=== PATIENT | female | born 1960 | race Caucasian/White ===

== ENCOUNTER → 2021-06-24 11:26 | Outpatient (CLI) | payer BC, SELFPAY ==
--- NOTE | 2021-06-24 11:35 | DI.RAD.S_ITS ---
PROCEDURE: XR KNEE RT 3V INDICATIONS: RT KNEE TRAUMA TECHNIQUE: 3 views of the knee were acquired. COMPARISON: None. FINDINGS: Bones: No fractures or dislocations. No suspicious bony lesions. Mild tricompartmental osteoarthritis. Soft tissues: No joint effusion. No suspicious soft tissue calcifications. IMPRESSION: No fracture. No acute osseous lesion. If symptoms and/or clinical suspicion for pathology persists, further assessment with repeat radiographs (7-10 days) or advanced imaging (e.g. CT, MRI or bone scan) should be considered. Dictated by: Annalee Payne MD, PhD on 06/24/2021 at 14:49 Approved by: Annalee Payne MD, PhD on 06/24/2021 at 14:53
== END ==
PROVIDERS: PCP Internal Medicine; Referring Provider Internal Medicine; Visit Provider Internal Medicine
DX: M25.561 Pain in right knee (principal); S89.91XA Unspecified injury of right lower leg, initial encounter; X58.XXXA Exposure to other specified factors, initial encounter
CPT/HCPCS: 73562

== ENCOUNTER → 2021-07-01 08:29 | Outpatient (CLI) | payer BC, SELFPAY ==
--- NOTE | 2021-07-01 | DI.MRI.S_ITS ---
PROCEDURE: MR KNEE RT WO CON INDICATIONS: Pain in right knee TECHNIQUE: Noncontrast sagittal PD fast spin echo and T2 fast spin echo with fat saturation, sagittal 3-D FLASH with fat saturation; coronal T1 spin echo and PD fast spin echo with fat saturation, and axial PD fast spin echo with fat saturation through the knee. COMPARISON: [facility], CR, XR KNEE RT 3V, 06/24/2021, 11:29. FINDINGS: Image quality: Excellent. Menisci: There is nondisplaced tear involving the body of the medial meniscus (series 10, image 19). A ramp lesion is seen in the posterior horn of the medial meniscus. The lateral meniscus demonstrates normal morphology and internal signal. The meniscal root ligaments appear intact. Cruciate ligaments: The anterior cruciate ligament appears mildly irregular with heterogeneous signal, suspicious for partial tear. The posterior cruciate ligament is intact. Medial structures: There is grade 2 sprain of the medial collateral ligament. Partial tear is noted in the semimembranosus tendon insertions. There is contusion of the posterior medial joint capsule. The meniscocapsular junction appear intact. Visualized portions of the pes anserinus tendons appear normal. No abnormal bursal fluid. Lateral structures: The lateral collateral ligament, long and short heads of the biceps femoris tendon appear intact. There is partial tear of the popliteus tendon at the musculotendinous junction. No tendon retraction. Iliotibial band appears normal. Anterior structures: The quadriceps and patellar tendons appear intact. Patellar alignment is normal. No femoral trochlear dysplasia or ventral trochlear prominence. No edema in the infrapatellar fat pad. Superficial infrapatellar tissue edema consistent with soft tissue contusion. Bones and cartilage: There is a nondisplaced fracture involving the medial tibial plateau with associated marrow edema. No central depression of the medial tibial plateau. Mild contusion of the the lateral tibial plateau is also noted. The cartilage of the medial and lateral femorotibial compartments, as well as the patellofemoral compartment, appears normal in thickness. Joint space: There is small knee joint effusion. There is a tiny Borges's cyst. Normal appearing synovial plicae are incidentally noted. IMPRESSION: 1. Nondisplaced fracture of the medial tibial plateau. No central depression of the medial tibial plateau. There is marrow edema in medial and lateral tibial plateau consistent with contusions. 2. Horizontal tear of the body of the medial meniscus. In addition, there is a ramp lesion in the posterior horn of the medial meniscus with associated contusion of the posterior medial joint capsule. No meniscocapsular separation. 3. Suspect partial tear of the ACL which is mildly irregular and heterogeneous in signal intensity. 4. Grade 2 sprain of the medial collateral ligament. 5. Partial tear of the semimembranosus tendon insertions. 6. Partial tear of the popliteus tendon at musculotendinous junction. No tendon retraction. 7. Small knee joint effusion. 8. Anterior inferior superficial soft tissue contusion in the infrapatellar soft tissue. Dictated by: Kimberly Campoverde M.D. on 07/01/2021 at 9:42 Approved by: Kimberly Campoverde M.D. on 07/01/2021 at 10:04
== END ==
PROVIDERS: PCP Internal Medicine; Referring Provider Internal Medicine; Visit Provider Internal Medicine
DX: M25.561 Pain in right knee (principal); S82.144A Nondisplaced bicondylar fracture of right tibia, initial encounter for closed fracture; S83.241A Other tear of medial meniscus, current injury, right knee, initial encounter; S83.411A Sprain of medial collateral ligament of right knee, initial encounter; S76.811A Strain of other specified muscles, fascia and tendons at thigh level, right thigh, initial encounter; M25.461 Effusion, right knee; X58.XXXA Exposure to other specified factors, initial encounter
CPT/HCPCS: 73721

== ENCOUNTER → 2022-05-04 07:30 | Outpatient (CLI) | payer OTHER, SELFPAY ==
--- NOTE | 2022-05-04 | DI.MG.S_ITS ---
BILATERAL DIGITAL SCREENING MAMMOGRAM 3D/2D WITH CAD: 05/04/2022 CLINICAL: Routine screening. Family history of breast cancer. Comparison is made to exams dated: 02/16/2019 mammogram, 12/23/2016 mammogram, and 06/19/2014 mammogram - out side. The tissue of both breasts is heterogeneously dense. This may lower the sensitivity of mammography. Current study was also evaluated with a Computer Aided Detection (CAD) system. No significant masses, calcifications, or other findings are seen in either breast. There has been no significant interval change. IMPRESSION: NEGATIVE There is no mammographic evidence of malignancy. A 1 year screening mammogram is recommended. Based on the Tyrer Cuzick model (a risk assessment model) the patient's lifetime risk is 14.1% and her 10 year risk is 5.8%. According to the ACR, ACS, and NCCN guidelines, an annual breast MRI exam along with mammogram is recommended if the patient's lifetime risk is 20% or greater. This exam was interpreted at Station ID: [id number]. NOTE: For mammograms, a report in lay terms will be sent to the patient. Approximately 15% of breast malignancies will not be visualized mammographically. In the management of a palpable breast mass, a negative mammogram must not discourage biopsy of a clinically suspicious lesion. Electronically Signed By: Milind Ramires M.D. [facility] [place]/:05/04/2022 08:51:23 letter sent: Normal Exam ACR BI-RADS Category 1: Negative [id number]
== END ==
PROVIDERS: PCP Student in an Organized Health Care Education/Training Program; Referring Provider Student in an Organized Health Care Education/Training Program; Visit Provider Student in an Organized Health Care Education/Training Program
DX: Z12.31 Encounter for screening mammogram for malignant neoplasm of breast (principal); Z80.3 Family history of malignant neoplasm of breast
CPT/HCPCS: 77063; 77067

== ENCOUNTER → 2023-06-07 08:09 | Outpatient (CLI) | payer OTHER, SELFPAY ==
--- NOTE | 2023-06-07 | DI.MG.S_ITS ---
BILATERAL DIGITAL SCREENING MAMMOGRAM 3D/2D WITH CAD: 06/07/2023 CLINICAL: Routine screening. Family history of breast cancer. Comparison is made to exams dated: 05/04/2022 mammogram - [facility], 02/16/2019 mammogram, and 06/19/2014 mammogram - out side. There are scattered areas of fibroglandular density in both breasts (category b / 25%-50% glandular tissue). Current study was also evaluated with a Computer Aided Detection (CAD) system. No significant masses, calcifications, or other findings are seen in either breast. There has been no significant interval change. IMPRESSION: NEGATIVE There is no mammographic evidence of malignancy. A 1 year screening mammogram is recommended. Based on the Tyrer Cuzick model (a risk assessment model) the patient's lifetime risk is 9.3% and her 10 year risk is 3.9%. According to the ACR, ACS, and NCCN guidelines, an annual breast MRI exam along with mammogram is recommended if the patient's lifetime risk is 20% or greater. This exam was interpreted at Station ID: [id number]. NOTE: For mammograms, a report in lay terms will be sent to the patient. Approximately 15% of breast malignancies will not be visualized mammographically. In the management of a palpable breast mass, a negative mammogram must not discourage biopsy of a clinically suspicious lesion. Electronically Signed By: Giana davila/suellen:06/07/2023 15:14:17 letter sent: Normal Exam ACR BI-RADS Category 1: Negative [id number]
== END ==
PROVIDERS: PCP Student in an Organized Health Care Education/Training Program; Referring Provider Student in an Organized Health Care Education/Training Program; Visit Provider Student in an Organized Health Care Education/Training Program
DX: Z12.31 Encounter for screening mammogram for malignant neoplasm of breast (principal); Z80.3 Family history of malignant neoplasm of breast
CPT/HCPCS: 77063; 77067

== ENCOUNTER 2023-12-27 14:55 | Inpatient (IN) | payer OTHER, SELFPAY ==
[2023-12-27] VITALS (23 sets, daily range): BP systolic 102–171; BP diastolic 55–91; PULSE 66–107; RESP 19–38; TEMP 37.2–38.2; O2SAT 95–100; BMI 30.5
[2023-12-27] MEDS: PANTOPRAZOLE 40 MG VIAL 80 MG IV (15:30)
[2023-12-27 15:38] LABS: Add Manual Diff / Slide Review NO; Basophils Absolute Auto 0 /uL (0-100); Basophils Percent Auto 0.2 % (0-2); Eosinophils Absolute Auto 0 /uL (0-450); Hematocrit 46.2 % (36-46); Hemoglobin 15.6 g/dL (12.0-16.0); Lymphocytes Absolute Auto 500 /uL (1100-4500); Lymphocytes Percent Auto 3.7 % (25-40); Mean Corpuscular HGB Conc 33.8 % (30-36); Mean Corpuscular Volume 91.6 fL (80-100); Monocytes Absolute Auto 300 /uL (0-900); Monocytes Percent Auto 1.8 % (3-14); Neutrophils Absolute Auto 13100 /uL (1500-7000); Neutrophils Percent Auto 94.3 % (50-75); Platelet Count 206 X10^3/uL (150-400); Red Blood Cell Count 5.05 X10^6/uL (4.0-5.2); Red Cell Distribution Width 13.2 % (11.6-14.8); White Blood Cell Count 13.9 X10^3/uL (4.5-11.0)
[2023-12-27] MEDS: HYDROMORPHONE 0.5 MG INJ IV ×2 (15:38→18:36)
[2023-12-27 15:49] LABS: PTT Partial Thromboplastin Tim 35 SECONDS (25.1-36.5)
--- NOTE | 2023-12-27 15:51 | ED_ITS ---
HPI - GI Bleed General Chief complaint: GI Bleed Stated complaint: GI Sick Time Seen by Provider: 12/27/23 15:36 Source: patient, family and EMS Mode of arrival: EMS History of Present Illness HPI Narrative: Patient brought here by ambulance from home for complaints of nausea with lower abdominal pain that does not radiate. Sharp pain. This started yesterday. Had 1 episode of dark stool but not bright red blood. Patient is not on any blood thinners. Patient has history of hysterectomy and appendectomy. She states she has had a colonoscopy in the past, no history of diverticulosis or diverticulitis. No urinary complaints. Related Data Home Medications Medication Instructions Recorded Confirmed bupropion HCl 200 mg tablet,12 hr 200 mg PO BID 12/27/23 12/27/23 sustained-release buspirone 15 mg tablet 15 mg PO DAILY PRN Anxiety 12/27/23 12/27/23 fluticasone propionate 50 2 spray intranasal DAILY 12/27/23 12/27/23 mcg/actuation nasal spray,suspension methylphenidate HCl 20 mg tablet 20 mg PO BID PRN attention deficit 12/27/23 12/27/23 hyperactivity disorder sumatriptan succinate 100 mg tablet 100 mg PO Q2H PRN Migraine Headache 12/27/23 12/28/23 topiramate 25 mg tablet 50 mg PO ONCE PM 12/27/23 12/27/23 trazodone 50 mg tablet 50 mg PO ONCE PM PRN Insomnia 12/27/23 12/27/23 venlafaxine 225 mg tablet,extended 225 mg PO DAILY 12/27/23 12/27/23 release 24 hr Previous Rx's Medication Instructions Recorded levofloxacin 750 mg tablet 750 mg PO DAILY #2 tabs 12/30/23 tramadol 50 mg tablet 50 mg PO Q6H PRN pain #15 tabs 12/30/23 Allergies Allergy/AdvReac Type Severity Reaction Status Date / Time hydrocodone Allergy Severe Anaphylaxis Verified 12/27/23 15:33 Review of Systems Review of Systems Narrative: GENERAL: negative chills, fatigue, malaise, fever, sweats. HEENT: negative sinus pain, ear pain, sore throat RESPIRATORY: negative dyspnea, cough CARDIOVASCULAR: negative chest pain, palpitations GASTROINTESTINAL: Positive dark stool and nausea, negative vomiting, positive abdominal pain : negative dysuria, frequency, hematuria MUSCULOSKELETAL: negative muscle or bony pain SKIN: negative rash, skin lesions NEUROLOGIC: negative weakness, numbness ROS Unobtainable: All systems reviewed & are unremarkable except as noted in HPI and below Patient History Medical History (Updated 12/27/23 @ 19:49 by Shawn Alvarenga MD) Factor 5 Leiden mutation, heterozygous Surgical History (Updated 12/27/23 @ 19:49 by Shawn Alvarenga MD) H/O: hysterectomy History of appendectomy Social History household members: spouse Smoking Status: Never smoker Smoking Status: Never smoker alcohol intake frequency: a few times a month Alcohol type: wine Substance Use Type: does not use Exam Narrative Exam Narrative: GENERAL: in no distress, not toxic not dyspneic HEAD: Normocephalic. EYES: Pupils equal round ENT: Mucous membranes moist. NECK: Trachea midline. CARDIOVASCULAR: Regular rate and rhythm RESPIRATORY: Clear to auscultation. Breath sounds equal bilaterally. No wheezes, rales, or rhonchi. GASTROINTESTINAL: Abdomen soft, mild suprapubic tenderness, no peritoneal signs, no guarding no rebound. Bowel sounds are present. No pain out of proportion to exam. No CVA tenderness EXTREMITIES: No gross deformities. BACK: No flank tenderness. NEURO: AOx4. SKIN: Warm and dry PSYCH: Not anxious, is cooperative Initial Vital Signs Initial Vital Signs: Vital Signs Temperature 98.9 F 12/27/23 15:03 Pulse Rate 68 12/27/23 15:03 Respiratory Rate 22 12/27/23 15:03 Blood Pressure 102/55 L 12/27/23 15:03 Pulse Oximetry 100 12/27/23 15:03 Oxygen Delivery Method Room Air 12/27/23 15:03 Course Orders Ordered: Discontinued Medications Acetaminophen (Acetaminophen 325 Mg Tablet) 650 mg PO Q6H PRN PRN Reason: Fever/Mild Pain (1-3) Last Admin: 12/30/23 09:01 Dose: 650 mg Documented By: Admin: 12/30/23 00:21 Dose: 650 mg Documented By: Admin: 12/29/23 14:44 Dose: 650 mg Documented By: Admin: 12/29/23 07:37 Dose: 650 mg Documented By: Admin: 12/29/23 00:54 Dose: 650 mg Documented By: Admin: 12/28/23 16:02 Dose: 650 mg Documented By: BT Bupropion HCl (Bupropion Sr 100 Mg Tab) 200 mg PO BID COUNTS INCLUDE 234 BEDS AT THE [facility] Last Admin: 12/30/23 09:00 Dose: 200 mg Documented By: Admin: 12/29/23 20:01 Dose: 200 mg Documented By: Admin: 12/29/23 08:27 Dose: 200 mg Documented By: Admin: 12/28/23 21:11 Dose: 200 mg Documented By: SR Buspirone HCl (Buspirone 5 Mg Tablet) 15 mg PO DAILY PRN PRN Reason: Anxiety Celecoxib (Celecoxib 100 Mg Capsule) 100 mg PO BID COUNTS INCLUDE 234 BEDS AT THE [facility] Celecoxib (Celecoxib 200 Mg Capsule) 200 mg PO BID COUNTS INCLUDE 234 BEDS AT THE [facility] Last Admin: 12/30/23 09:01 Dose: 200 mg Documented By: Admin: 12/29/23 20:01 Dose: 200 mg Documented By: Admin: 12/29/23 08:27 Dose: 200 mg Documented By: Admin: 12/28/23 21:11 Dose: 200 mg Documented By: SR Celecoxib (Celecoxib 200 Mg Capsule) 200 mg PO BID COUNTS INCLUDE 234 BEDS AT THE [facility] Enoxaparin Sodium (Enoxaparin 40 Mg/0.4 Ml Syringe) 40 mg SUBCUT DAILY COUNTS INCLUDE 234 BEDS AT THE [facility] Last Admin: 12/30/23 09:01 Dose: Not Given Documented By: Admin: 12/29/23 08:28 Dose: 40 mg Documented By: EV Fentanyl (Fentanyl 100 Mcg/2 Ml Inj) 0 mcg IV Q5MIN PRN PRN Reason: Pain, Severe (7-10) Fentanyl (Fentanyl 100 Mcg/2 Ml Inj) 0 mcg IV Q5M PRN PRN Reason: Pain, Moderate (4-6) Fluticasone Propionate (Fluticasone 120 [place]/16 Gm [place].Susp) 2 spray NASAL DAILY COUNTS INCLUDE 234 BEDS AT THE [facility] Last Admin: 12/30/23 09:01 Dose: Not Given Documented By: Admin: 12/29/23 09:26 Dose: Not Given Documented By: BT Hydromorphone HCl (Hydromorphone 0.5 Mg Inj) 0.5 mg IV NOW ONE Stop: 12/27/23 15:35 Last Admin: 12/27/23 15:38 Dose: 0.5 mg Documented By: FREDERIC Hydromorphone HCl (Hydromorphone 0.5 Mg Inj) 0.5 mg IV Q2H PRN PRN Reason: Pain, Severe (7-10) Last Admin: 12/27/23 18:36 Dose: 0.5 mg Documented By: FREDERIC Hydromorphone HCl (Hydromorphone 0.5 Mg Inj) 1 mg IV Q2H PRN PRN Reason: Pain, Severe (7-10) Last Admin: 12/27/23 23:18 Dose: 1 mg Documented By: Admin: 12/27/23 20:30 Dose: 1 mg Documented By: RYAN Hydromorphone HCl (Hydromorphone 1 Mg Inj) 1 mg IV Q2HR PRN PRN Reason: Pain, Severe (7-10) Last Admin: 12/28/23 22:51 Dose: 1 mg Documented By: Admin: 12/28/23 14:05 Dose: 1 mg Documented By: Admin: 12/28/23 06:12 Dose: 1 mg Documented By: Admin: 12/28/23 01:10 Dose: 1 mg Documented By: RYAN Hydromorphone HCl (Hydromorphone 1 Mg Inj) 0 mg IV Q5MIN PRN PRN Reason: Pain, Mild (1-3) Hydromorphone HCl (Hydromorphone 1 Mg Inj) 0 mg IV Q5MIN PRN PRN Reason: Pain, Moderate (4-6) Last Admin: 12/28/23 11:46 Dose: 0.5 mg Documented By: BRIDGETTE Sodium Chloride (Normal Saline 0.9%) 1,000 mls @ 1,000 mls/hr IV BOLUS ONE Stop: 12/27/23 16:49 Last Infusion: 12/27/23 17:05 Dose: Infused Documented By: Admin: 12/27/23 16:07 Dose: 1,000 mls/hr Documented By: FREDERIC Dextrose/Sodium Chloride (Dextrose 5%-0.45% Ns) 1,000 mls @ 100 mls/hr IV CONT DONNIE Last Admin: 12/29/23 08:23 Dose: 100 mls/hr Documented By: Infusion: 12/29/23 08:23 Dose: Infused Documented By: Admin: 12/28/23 22:25 Dose: 100 mls/hr Documented By: Infusion: 12/28/23 16:23 Dose: Infused Documented By: Admin: 12/28/23 06:23 Dose: 100 mls/hr Documented By: Infusion: 12/28/23 06:23 Dose: Infused Documented By: Admin: 12/27/23 20:34 Dose: 100 mls/hr Documented By: Infusion: 12/27/23 20:34 Dose: Infused Documented By: Admin: 12/27/23 19:05 Dose: 100 mls/hr Documented By: FREDERIC Piperacillin Sod/Tazobactam (Sod 4.5 gm/ Sodium Chloride) 100 mls @ 200 mls/hr IV NOW ONE Stop: 12/28/23 08:35 Last Admin: 12/28/23 12:43 Dose: Not Given Documented By: ALLA Lactated Ringer's (Lactated Ringers) 1,000 mls @ 100 mls/hr IV NOW ONE Stop: 12/28/23 20:19 Last Admin: 12/28/23 10:21 Dose: 100 mls/hr Documented By: Infusion: 12/28/23 10:21 Dose: Infused Documented By: Admin: 12/28/23 08:50 Dose: 100 mls/hr Documented By: IF Piperacillin Sod/Tazobactam (Sod 3.375 gm/ Sodium Chloride) 100 mls @ 25 mls/hr IV NOW ONE Stop: 12/28/23 10:23 Last Infusion: 12/28/23 09:40 Dose: Infused Documented By: Admin: 12/28/23 09:10 Dose: 25 mls/hr Documented By: NUNU Piperacillin Sod/Tazobactam (Sod 3.375 gm/ Sodium Chloride) 100 mls @ 25 mls/hr IV Q8H COUNTS INCLUDE 234 BEDS AT THE [facility] Stop: 12/28/23 20:59 Last Admin: 12/28/23 16:11 Dose: 25 mls/hr Documented By: ALLA Levofloxacin (Levofloxacin 250 Mg Tablet) 750 mg PO 0700 COUNTS INCLUDE 234 BEDS AT THE [facility] Last Admin: 12/30/23 06:14 Dose: 750 mg Documented By: GATITO Morphine Sulfate (Morphine 4 Mg/Ml Inj) 4 mg IV Q4HR PRN PRN Reason: Pain, Severe (7-10) Last Admin: 12/28/23 07:40 Dose: 4 mg Documented By: Admin: 12/28/23 03:16 Dose: 4 mg Documented By: Admin: 12/27/23 21:50 Dose: 4 mg Documented By: SADA Naloxone HCl (Naloxone 0.4 Mg/Ml Vial) 0.2 mg IV Q2MIN PRN PRN Reason: Opiate Reversal Ondansetron HCl (Ondansetron 4 Mg/2 Ml Inj) 4 mg IV NOW PRN PRN Reason: Nausea And Vomiting Ondansetron HCl (Ondansetron 4 Mg Odt) 4 mg SL NOW PRN PRN Reason: Nausea And Vomiting Ondansetron HCl (Ondansetron 4 Mg/2 Ml Inj) 4 mg IV Q4HR PRN PRN Reason: Nausea And Vomiting Last Admin: 12/30/23 06:52 Dose: 4 mg Documented By: Admin: 12/27/23 23:23 Dose: 4 mg Documented By: SADA Ondansetron HCl (Ondansetron 4 Mg/2 Ml Inj) 4 mg IV NOW PRN PRN Reason: Nausea And Vomiting Oxycodone HCl (Oxycodone Ir 5 Mg Tablet) 5 mg PO PACUNOW PRN PRN Reason: Mild or moderate pain Last Admin: 12/28/23 11:53 Dose: 5 mg Documented By: JEROMY Oxycodone HCl (Oxycodone Ir 5 Mg Tablet) 5 mg PO Q4HR PRN PRN Reason: Pain, Moderate (4-6) Last Admin: 12/30/23 00:21 Dose: 5 mg Documented By: Admin: 12/29/23 06:32 Dose: 5 mg Documented By: Admin: 12/29/23 00:53 Dose: 5 mg Documented By: Admin: 12/28/23 19:27 Dose: 5 mg Documented By: Admin: 12/28/23 16:02 Dose: 5 mg Documented By: ALLA Oxycodone HCl (Oxycodone Ir 10 Mg Tablet) 10 mg PO Q4HR PRN PRN Reason: Pain, Severe (7-10) Last Admin: 12/29/23 17:02 Dose: 10 mg Documented By: ALLA Pantoprazole Sodium (Pantoprazole 40 Mg Vial) 80 mg IV NOW ONE Stop: 12/27/23 15:26 Last Admin: 12/27/23 15:30 Dose: 80 mg Documented By: FREDERIC Polyethylene Glycol/Electrolytes ([id number]/Sod Sulf,Bicarb,Cl/Kcl 4,000 Ml Solution) 4,000 ml PO NOW ONE Stop: 12/28/23 06:02 Last Admin: 12/28/23 06:24 Dose: 4,000 ml Documented By: RYAN Potassium Chloride (Potassium Chloride 20 Meq Tab) 40 meq PO Q6H COUNTS INCLUDE 234 BEDS AT THE [facility] Stop: 12/28/23 13:01 Last Admin: 12/28/23 13:57 Dose: 40 meq Documented By: Admin: 12/28/23 06:56 Dose: 40 meq Documented By: RYAN Potassium Chloride (Potassium Chloride 20 Meq/15 Ml Udc) 40 meq PO NOW ONE Stop: 12/29/23 09:16 Last Admin: 12/29/23 09:26 Dose: 40 meq Documented By: ALLA Sumatriptan Succinate (Sumatriptan 25 Mg Tablet) 100 mg PO DAILY PRN PRN Reason: migraine Last Admin: 12/27/23 21:49 Dose: 100 mg Documented By: SADA Sumatriptan Succinate (Sumatriptan 25 Mg Tablet) 100 mg PO Q2H PRN PRN Reason: migraine Last Admin: 12/28/23 19:27 Dose: 100 mg Documented By: Admin: 12/28/23 14:05 Dose: 100 mg Documented By: Admin: 12/28/23 03:43 Dose: 100 mg Documented By: RYAN Topiramate (Topiramate 25 Mg Tablet) 50 mg PO QPM COUNTS INCLUDE 234 BEDS AT THE [facility] Last Admin: 12/29/23 17:05 Dose: 50 mg Documented By: Admin: 12/28/23 16:08 Dose: 50 mg Documented By: Admin: 12/27/23 21:49 Dose: 50 mg Documented By: SADA Tramadol HCl (Tramadol 50 Mg Tablet) 50 mg PO TID PRN PRN Reason: Pain, Moderate (4-6) Last Admin: 12/30/23 05:01 Dose: 50 mg Documented By: Admin: 12/29/23 20:02 Dose: 50 mg Documented By: Admin: 12/29/23 12:20 Dose: 50 mg Documented By: Admin: 12/29/23 07:36 Dose: 50 mg Documented By: ALLA Trazodone HCl (Trazodone 50 Mg Tablet) 50 mg PO BEDTIME PRN PRN Reason: Insomnia Venlafaxine HCl (Venlafaxine Er 75 Mg Cap) 225 mg PO DAILY COUNTS INCLUDE 234 BEDS AT THE [facility] Last Admin: 12/30/23 09:00 Dose: 225 mg Documented By: Admin: 12/29/23 09:25 Dose: 225 mg Documented By: Admin: 12/28/23 12:50 Dose: 225 mg Documented By: BT Vital Signs Vital signs: Vital Signs - 8 hr 12/27/23 15:03 Temperature 98.9 F Pulse Rate 68 Respiratory Rate 22 Blood Pressure 102/55 L Pulse Oximetry 100 Oxygen Delivery Method Room Air MDM - GI Bleed Lab Data 12/30/23 04:45 12/30/23 04:45 Labs: Lab Results 12/27/23 Range/Units 15:20 WBC 13.9 H (4.5-11.0) X10^3/uL RBC 5.05 (4.0-5.2) X10^6/uL Hgb 15.6 (12.0-16.0) g/dL Hct 46.2 H (36-46) % MCV 91.6 (80-100) fL MCH 31.0 (26-34) PG MCHC 33.8 (30-36) % RDW 13.2 (11.6-14.8) % Plt Count 206 (150-400) X10^3/uL Neut % (Auto) 94.3 H (50-75) % Lymph % (Auto) 3.7 L (25-40) % [place] % (Auto) 1.8 L (3-14) % Eos % (Auto) 0.0 L (2-4) % Baso % (Auto) 0.2 (0-2) % Neut # (Auto) 61304 H (1899-7229) /uL Lymph # (Auto) 500 L (5996-0058) /uL [place] # (Auto) 300 (0-900) /uL Eos # (Auto) 0 (0-450) /uL Baso # (Auto) 0 (0-100) /uL PT 11.0 (9.4-12.5) SECONDS INR 1.0 (0.9-1.3) APTT 35 (25.1-36.5) SECONDS Sodium 140 (137-145) mmol/L Potassium 3.7 (3.4-5.1) mmol/L Chloride 108 H (98-107) mmol/L Carbon Dioxide 28 (22-32) mmol/L BUN 16 (7-17) mg/dL Creatinine 1.00 (0.52-1.04) mg/dL Estimated GFR > 60 (>60) mL/min BUN/Creatinine Ratio 16.0 (6-22) Glucose 211 H (80-110) mg/dL Lactate 2.3 H (0.7-2.1) mmol/L Calcium 9.6 (8.4-10.2) mg/dL Total Bilirubin 0.8 (0.2-1.3) mg/dL AST 28 (14-36) IU/L ALT 24 (<35) IU/L Alkaline Phosphatase 78 (38-126) U/L Total Protein 7.5 (6.3-8.2) g/dL Albumin 4.6 (3.5-5.0) g/dL Globulin 2.9 (1.7-4.1) g/dL Albumin/Globulin Ratio 1.6 (1.0-2.8) Carcinoembryonic Ag 4.1 H (0.1-3.0) ng/mL Blood Type A Positive Antibody Screen Negative Point of Care Testing Stool Occult Blood Negative Urine Dip Bedside Urine Glucose Negative Bedside Urine Bilirubin - Negative Bedside Urine Ketone - Negative Urine Specific [place] 1.010 Bedside Urine Occult Blood - Negative Bedside Urine pH 7.0 Bedside Urine Protein - Negative Bedside Urine Urobilinogen - Negative Bedside Urine Nitrite - Negative Bedside Urine Leukocytes - Negative Esterase Imaging Data CT scan - abdomen/pelvis: Radiologist's Impression: [place] [address] CT Scan Report Signed Patient: Corie Treadwell MR#: [id number] : 1960 Acct:[id number] Age/Sex: 63 / F Date of Service: 12/27/23 Loc: ED Accession Number: [id number] Procedure: CT abdomen pelvis w con Ordering Provider: Ketan Scott MD PROCEDURE: CT ABDOMEN PELVIS W CON INDICATIONS: IV contrast only/Low abdominal pain TECHNIQUE: After the administration of intravenous contrast, axial sections acquired from the lung bases to the pubic symphysis. Coronal and sagittal reformats were performed. For radiation dose reduction, the following was used: automated exposure control, adjustment of mA and/or kV according to patient size. COMPARISON: None. FINDINGS: Image quality: Diagnostic. Lower Chest: No significant findings. ABDOMEN: Liver: No solid mass. Gallbladder: Gallbladder is contracted around numerous relatively small stones. Biliary ducts: No biliary dilation. Pancreas: No ductal dilation. Spleen: Size is within normal limits. Adrenal Glands: No adrenal nodules. Kidneys and Ureters: No hydronephrosis. No solid mass. No complex renal cystic lesion which requires follow up. Stomach and Bowel: Moderate hiatal hernia containing stomach. Stomach is mildly dilated and filled with debris. There appears to be a mass filling the cecum. It appears to be unrelated to the ileocecal valve, occurring peripheral to the ileal cecal valve. The ileocecal valve is present on images 30/3 and 31/3. The probable cecal mass is present on images 30 through 34 of series 3. This allows the distal small bowel to be normal caliber. Reference coronal image 32 of series 3 and axial image 69 of series 2. There are prominent loops of jejunum, measuring up to 3.7 cm, consistent with partial small bowel obstruction. The distal small bowel is more normal in caliber. There are liquid colonic contents. There is enhancement and thickening of the wall of the sigmoid. Peritoneum: Mild pelvic ascites. No free air. Ventral Wall: No significant ventral hernia. Abdominal Nodes: No retroperitoneal or mesenteric adenopathy by size criteria. Vessels: Aorta and inferior vena cava are normal in size. PELVIS: Pelvic Organs: Uterus is surgically absent.. Bladder: No bladder wall thickening, accounting for underdistention. Pelvic Nodes: No enlarged lymph nodes. Miscellaneous: No inguinal hernias are seen. Bones: No aggressive osseous abnormality. IMPRESSION: 1. There are multiple abnormalities involving the bowel. Of note, there is suspicion of malignancy involving the cecum, without obstructing the ileocecal valve. The distal ileum is of normal caliber. However, it has wall seems to enhance. The jejunum is dilated suggesting possible partial small bowel obstruction. The sigmoid is enhancing with wall thickening. 2. The colonic contents are predominantly liquid. 3. Moderate hiatal hernia, distended stomach. 4. Gallbladder is filled with stones. Comment: Consider possible carcinomatosis or 2 separate processes including a primary carcinoma of the cecum as well as serosal implant disease or acute inflammation or infection involving small bowel and sigmoid. Comment: Direct visualization of the colon may be helpful. Dictated by: Rc Yarbrough M.D. on 12/27/2023 at 16:34 Approved by: Rc Yarbrough M.D. on 12/27/2023 at 16:46 [facility] Narrative Medical decision making narrative: Patient brought here by ambulance from home for complaints of nausea with lower abdominal pain that does not radiate. Sharp pain. This started yesterday. Had 1 episode of dark stool but not bright red blood. Patient is not on any blood thinners. Patient has history of hysterectomy and appendectomy. She states she has had a colonoscopy in the past, no history of diverticulosis or diverticulitis. No urinary complaints. After history and exam CBC CMP type and screen PT INR CT abdomen pelvis Dilaudid Zofran normal saline [facility] Medical records reviewed: No recent visit for this complaint Differential considered: Includes but not limited to diverticulitis colitis Lab Test results independently reviewed as above. Pertinent findings: WBC 13.9 hemoglobin 15 point sodium 140 potassium 3.7 AST 28 ALT 24 Imaging studies independently reviewed: CT abdomen pelvis, possible partial bowel obstruction/neoplasm Consultations: 5:[address] Alvarenga, in the emergency department. He is here. He has reviewed CT results. Recommends hospitalist to admit and he will follow in consult Spoke with Dr. Givens, at this time he would prefer Dr. Alvarenga to admit, charge nurse Jamia did contact Dr. Alvarenga and he will admit Treatments: Zofran Dilaudid normal saline Re-evaluations: 5:15 p.m.. Updated patient results. Pain is better. Nausea is better. She did have colonoscopy 2 years ago which was unremarkable. She does understand needs repeat colonoscopy here. Concerning for neoplasm Discussion: Appropriate for admission for partial bowel obstruction/pain control/endoscopy for possible neoplasm Diagnosis: Abdominal pain Discharge Plan Departure Patient Disposition: Admitted as Observation Clinical Impression: Partial bowel obstruction Qualifiers: Intestinal obstruction type: unspecified Qualified Code(s): K56.600 - Partial intestinal obstruction, unspecified as to cause Admit Date/Time: 12/27/23 19:04 Admit Provider: Shawn Alvarenga
[2023-12-27 15:55] LABS: Alanine Aminotransferase 24 IU/L (<35); Albumin 4.6 g/dL (3.5-5.0); Albumin Globulin Ratio 1.6 (1.0-2.8); Alkaline Phosphatase 78 U/L (38-126); Aspartate Aminotransferase 28 IU/L (14-36); Bilirubin Total 0.8 mg/dL (0.2-1.3); Blood Urea Nitrogen 16 mg/dL (7-17); Calcium 9.6 mg/dL (8.4-10.2); Carbon Dioxide 28 mmol/L (22-32); Chloride 108 mmol/L (98-107); Estimated Glomerular Filt Rate > 60 mL/min (>60); Globulin 2.9 g/dL (1.7-4.1); Glucose 211 mg/dL (80-110); HEMOLYSIS < 15 (0-50); Potassium 3.7 mmol/L (3.4-5.1); Sodium 140 mmol/L (137-145); Total Protein 7.5 g/dL (6.3-8.2)
[2023-12-27] MEDS: SODIUM CHLORIDE 0.9% 1,000 ML 1000 ML IV (16:07)
--- NOTE | 2023-12-27 18:35 | P.HP_ITS ---
History of Present Illness History of Present Illness Date Patient Seen: 12/27/23 Time Patient Seen: 19:43 Chief complaint: GI Sick Narrative: Corie is a 63-year-old woman PMH factor 5 Leiden deficiency not on anticoagulation, who presents to [facility] Emergency Department with acute onset of abdominal pain. She developed sharp bandlike pain of her lower abdomen over the past 24 hours with associated bloating. No nausea or emesis. Last bowel movement was several hours ago. For the past 6 months she has had altered bowel function. She reports a previously normal colonoscopy 2 years ago at [facility]. At admission CT abdomen pelvis demonstrates a partial small bowel obstruction and cecal mass however it does not appear that the small-bowel obstruction is secondary to the cecal mass. Previous abdominal surgery includes hysterectomy and appendectomy. At admission afebrile, vital signs within normal limits, WBC 14, with left shift. [facility] Medical History (Updated 12/27/23 @ 19:49 by Shawn Alvarenga MD) Factor 5 Leiden mutation, heterozygous Surgical History (Updated 12/27/23 @ 19:49 by Shawn Alvarenga MD) H/O: hysterectomy History of appendectomy Social History Smoking Status: Never smoker Meds Home Medications and Allergies Home Medications Medication Instructions Recorded Confirmed Type buspirone 15 mg tablet 15 mg PO DAILY PRN Anxiety 12/27/23 12/27/23 History methylphenidate HCl 20 mg tablet 20 mg PO BID attention deficit 12/27/23 12/27/23 History hyperactivity disorder sumatriptan succinate 100 mg tablet 100 mg PO DAILY PRN Migraine 12/27/23 12/27/23 History Headache topiramate 25 mg tablet 50 mg PO ONCE PM 12/27/23 12/27/23 History trazodone 50 mg tablet 50 mg PO ONCE PM PRN Insomnia 12/27/23 12/27/23 History venlafaxine 225 mg tablet,extended 225 mg PO DAILY 12/27/23 12/27/23 History release 24 hr Allergies Allergy/AdvReac Type Severity Reaction Status Date / Time hydrocodone Allergy Severe Anaphylaxis Verified 12/27/23 15:33 Exam Vital Signs (past 8 hours): - 12/27/23 15:03 Temperature 98.9 F Pulse Rate 68 Respiratory Rate 22 Blood Pressure 102/55 L Pulse Oximetry 100 Oxygen Delivery Method Room Air Oxygen Delivery Method Room Air Narrative Exam Narrative: GENERAL: A well nourished, well developed adult woman, resting comfortably, in no acute distress. HEENT: Normocephalic, atraumatic. No scleral icterus CHEST: Rising symmetrically. No audible wheezes CARDIOVASCULAR: Warm and well perfused. Regular rate ABDOMEN: Distended no peritonitis lower abdomen is tender to palpation EXTREMITIES: Normal tone and without edema. NEUROLOGIC: Moving all extremities spontaneously. No gross motor deficits. Objective Labs 12/27/23 15:20 12/27/23 15:20 Labs: Laboratory Results - last 24 hr 12/27/23 15:20 WBC 13.9 H RBC 5.05 Hgb 15.6 Hct 46.2 H MCV 91.6 MCH 31.0 MCHC 33.8 RDW 13.2 Plt Count 206 Neut % (Auto) 94.3 H Lymph % (Auto) 3.7 L [place] % (Auto) 1.8 L Eos % (Auto) 0.0 L Baso % (Auto) 0.2 Neut # (Auto) 46668 H Lymph # (Auto) 500 L [place] # (Auto) 300 Eos # (Auto) 0 Baso # (Auto) 0 PT 11.0 INR 1.0 APTT 35 Sodium 140 Potassium 3.7 Chloride 108 H Carbon Dioxide 28 BUN 16 Creatinine 1.00 Estimated GFR > 60 BUN/Creatinine Ratio 16.0 Glucose 211 H Calcium 9.6 Total Bilirubin 0.8 AST 28 ALT 24 Alkaline Phosphatase 78 Total Protein 7.5 Albumin 4.6 Globulin 2.9 Albumin/Globulin Ratio 1.6 Blood Type A Positive Antibody Screen Negative Assessment & Plan Assessment and plan (1) Partial bowel obstruction: Qualifiers: Intestinal obstruction type: unspecified Qualified Code(s): K56.600 - Partial intestinal obstruction, unspecified as to cause Status: Acute Assessment & Plan narrative: 63-year-old woman PMH factor 5 Leiden deficiency not on anticoagulation with a history of abdominal surgery who presents with a small-bowel obstruction. No active emesis or peritonitis. 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 It appears that the small- bowel obstruction is not a result of her cecal mass and more likely secondary to adhesive disease. I had a lengthy discussion with the patient, her son and friends in the emergency department regarding her findings. I recommend that we proceed with conservative management no indication for any acute surgical intervention at this time.. Hopefully the cecal mass can be addressed in an elective setting after endoscopic evaluation. -surgical abdomen -NPO okay for sips and ice chips -nasogastric tube if emesis or worsening nausea -Gastrografin challenge -CTA chest abdomen pelvis rule out embolic disease -CEA -SCDs
[2023-12-27] MEDS: DEXTROSE 5%-0.45% NS 1,000 ML 100 ML IV ×2 (19:05→20:34)
--- NOTE | 2023-12-27 19:25 | DI.RAD.S_ITS ---
PROCEDURE: XR GASTROGRAFIN CHALLENGE COMPARISON: None. INDICATIONS: sbo FINDINGS: Oral contrast is visualized throughout the decompressed small bowel and the colon. Of note, the distal rectosigmoid is not visualized on this single view. IMPRESSION: Oral contrast visualized throughout the bowel. No findings to suggest persistent bowel obstruction. Dictated by: Priyanka Berg M.D. on 12/29/2023 at 8:28 Approved by: Priyanka Berg M.D. on 12/29/2023 at 8:31
--- NOTE | 2023-12-27 19:26 | DI.CT.S_ITS ---
PROCEDURE: CT ANGIO CHEST ABDOMEN PELVIS INDICATIONS: Abdominal pain hx factor 5 Leiden TECHNIQUE: Precontrast 5 mm thick sections acquired from the lung apices to the iliac crests. After the administration of intravenous contrast, 2.5 mm thick sections again acquired from the lung apices to the iliac crests. Maximum intensity projection (MIP) oblique sagittal and coronal reformats were then acquired. For radiation dose reduction, the following was used: automated exposure control. COMPARISON: [facility], US, US ABDOMEN COMPLETE, 12/01/2023, 9:05. [facility], CT, CT ABDOMEN PELVIS W CON, 12/27/2023, 16:06. FINDINGS: Image quality: Diagnostic. AORTA: No aortic aneurysm. No acute aortic syndrome. CHEST: Lower Neck: No enlarged lymph nodes. Thyroid: No thyroid nodules which require sonographic evaluation. Axillae: No enlarged lymph nodes. Chest Wall: Unremarkable. Lungs and Pleura: No pneumothorax or pleural effusions. Bibasilar scars and atelectasis. Heart: Heart size is normal. No pericardial effusion. Thoracic Vessels: Pulmonary arteries demonstrate normal size. Mediastinum and Beth: No enlarged lymph nodes. Esophagus: No wall thickening. Moderate-sized hiatal hernia. ABDOMEN: Liver: No solid mass. Gallbladder: Multiple gallstones. No gallbladder wall thickening or pericholecystic fluid collection. Biliary ducts: No biliary dilation. Pancreas: No ductal dilation. Spleen: Size is within normal limits. Adrenal Glands: No adrenal nodules. Kidneys and Ureters: No hydronephrosis. No solid mass. Bilateral simple appearing renal cysts are present. No complex renal cystic lesion which requires follow up. Stomach and Bowel: Normal small-bowel colonic caliber. There is segmental small bowel wall thickening involving distal duodenum and loops of jejunum. There is also diffuse colonic wall thickening involving the descending and sigmoid colon as well as rectum. Peritoneum: No abnormal intraperitoneal fluid. No free air. Ventral Wall: No hernia. Abdominal Nodes: No retroperitoneal or mesenteric adenopathy by size criteria. Vessels: Inferior vena cava is normal in size. PELVIS: Pelvic Organs: Unremarkable. Bladder: Unremarkable. Pelvic Nodes: No enlarged lymph nodes. Miscellaneous: No inguinal hernias are seen. Bones: Unremarkable. IMPRESSION: 1. No aortic aneurysm or dissection. 2. Patent mesenteric arteries. 3. No definitive pulmonary embolism. 4. Segmental small bowel wall thickening and distal colonic wall thickening. Differential diagnoses include inflammatory bowel disease versus infectious enterocolitis. 5. Small amount of free fluid. 6. Cholelithiasis. 7. Moderate-sized hiatal hernia. Dictated by: Kimberly Campoverde M.D. on 12/27/2023 at 20:31 Approved by: Kimberly Campoverde M.D. on 12/27/2023 at 20:39
[2023-12-27] MEDS: HYDROMORPHONE 0.5 MG INJ 1 MG IV ×2 (20:30→23:18)
[2023-12-27 20:55] LABS: Lactate (Lactic Acid) 2.3 mmol/L (0.7-2.1)
[2023-12-27 21:29] LABS: Carcinoembryonic Antigen 4.1 ng/mL (0.1-3.0)
[2023-12-27] MEDS: TOPIRAMATE 25 MG TABLET 50 MG PO (21:49)
[2023-12-27] MEDS: SUMAtriptan 25 MG TABLET 100 MG PO (21:49)
[2023-12-27] MEDS: MORPHINE 4 MG/ML INJ IV (21:50)
[2023-12-27 22:00] LABS: Lactate (Lactic Acid) 1.3 mmol/L (0.7-2.1)
[2023-12-27] MEDS: ONDANSETRON 4 MG/2 ML INJ IV (23:23)
[2023-12-28] VITALS (23 sets, daily range): BP systolic 118–179; BP diastolic 68–95; PULSE 56–111; RESP 16–27; TEMP 36.4–37; O2SAT 94–97; BMI 30.5
--- NOTE | 2023-12-28 | PATH_ITS ---
[facility] Accession Number: [id number] No. of containers..01 Tissue . 01 Material submitted: . colon - CECUM . 01 Diagnosis: CECUM, SEGMENTAL RESECTION: Tortuous bowel segment consistent with volvulus. Marked serositis with admixed nonpolarizable foreign material, suggestive of perforation. Serosal fibrous adhesions. Reactive lymphoid hyperplasia. R 01/05/2024 1420 Local . 01 Electronically signed: . Constanza Sethi MD, Pathologist NPI- [id number] . 01 Gross description: . Received in formalin with two identifiers and cecum, is a cecum with attached ileum measuring 1.5 cm in length by 3.7 cm in diameter, and cecum measuring 9.5 cm in length by 4.1 cm in diameter. The ileal margin is inked blue, and the colon margin is inked black. The serosa is pena, roughened with an outpouching at the base of the cecum, as well as contorted serosa consistent with volvulus. No appendix is identified. The lumen contains a small amount of fecal debris. No mass or obstruction is present, and the lumen is patent. Adherent pena material consistent with exudate is identified on the external surface of fecal outpouching and is inked orange. The remaining mucosa is pena and velvety with normal appearing folds. No polyps or lesions identified. The joshua average 0.3 cm thick with no diverticula identified. Palpation reveals eight pena lymph node candidates ranging from 0.1 to 0.9 cm in greatest dimension. Sections are submitted as follows: . A1: Ileal margin en face. A2: Colon margin en face. A3: Sections of tortuous bowel consistent with volvulus. A4: Cecal outpouching. A5: Ileocecal valve. A6: Unremarkable colon. A7: Two differentially inked, bisected lymph node candidates. A8: Single trisected lymph node candidate. A9: Five intact lymph node candidates. . Photographs taken. ([id number]) /MRV 12/30/2023 1617 Local . 01 Microscopic: . Immunohistochemical stains were performed to characterize the lymphoid aggregate in block A5. All control stains showed appropriate reactivity. CD3 and CD20 highlight mixed T and B cells, respectively. BCL2 highlights T cells and is negative in germinal center B cells. BCL6 highlights B cells in germinal centers. . * This test was developed and its performance characteristics determined by [facility]. It has not been cleared or approved by the U.S. Food and Drug Administration. The FDA has determined that such clearance or approval is not necessary. This test is used for clinical purposes. It should not be regarded as investigational or for research. . 01 Pathologist provided ICD-10: K56.2, K65.8 . 01 CPT . 712220, E97201, F52162 Specimen Comment: A courtesy copy of this report has been sent to [phone] Performed at: 01 [facility] [address] [place] [address], [place], [place] [id number] MD Luis Guerra MD Phone: [phone]
[2023-12-28] MEDS: HYDROMORPHONE 1 MG INJ IV ×5 (01:10→22:51)
--- NOTE | 2023-12-28 01:46 | PC.ADMIT ---
Addendum entered by Maryellen Lopez R.N. 12/28/23 06:13: Has had multiple loose stools this shift. Abdominal pain still present but only at 6/10 this morning. Migraine also improving after 2nd dose of Sumatriptan and is at 7/10; ice applied and medicated with Dilaudid. Dr. Alvarenga called this morning and is planning colonoscopy for later this afternoon and surgery on Tuesday. Patient and her son informed as per his instructions. Original Note: [address] Admission Note: The patient,Corie Treadwell,63 y/o, was given written information regarding hospital policies, unit procedures and contact persons. Patient's smoking status: Never smoker. Vital Signs - 8 hr 12/27/23 18:00 12/27/23 18:00 12/27/23 18:15 Temperature Pulse Rate 96 H 95 H Respiratory Rate 22 23 Blood Pressure 156/88 H Pulse Oximetry 97 95 Oxygen Delivery Method Oxygen Flow Rate 12/27/23 18:15 12/27/23 18:48 12/27/23 18:49 Temperature Pulse Rate 100 H 96 H Respiratory Rate 28 H 25 H Blood Pressure 153/90 H Pulse Oximetry 96 97 Oxygen Delivery Method Oxygen Flow Rate 12/27/23 18:49 12/27/23 19:00 12/27/23 19:01 Temperature Pulse Rate 97 H 98 H Respiratory Rate 24 23 Blood Pressure 137/89 Pulse Oximetry 96 96 Oxygen Delivery Method Oxygen Flow Rate 12/27/23 19:01 12/27/23 19:15 12/27/23 19:15 Temperature Pulse Rate 97 H Respiratory Rate Blood Pressure 163/87 H 155/88 H Pulse Oximetry 97 Oxygen Delivery Method Oxygen Flow Rate 12/27/23 19:30 12/27/23 19:30 12/27/23 20:00 Temperature Pulse Rate 95 H 99 H Respiratory Rate 24 25 H Blood Pressure 161/89 H Pulse Oximetry 97 98 Oxygen Delivery Method Oxygen Flow Rate 12/27/23 20:20 12/27/23 20:20 12/27/23 21:00 Temperature 100.7 F H Pulse Rate 97 H Respiratory Rate 19 Blood Pressure 146/91 H Pulse Oximetry 100 100 Oxygen Delivery Method Room Air Room Air Oxygen Flow Rate 0 0 12/28/23 00:00 12/28/23 00:00 Temperature 97.5 F L Pulse Rate 111 H Respiratory Rate 19 Blood Pressure 142/92 H Pulse Oximetry 94 94 Oxygen Delivery Method Room Air Oxygen Flow Rate 0 0 Patient admitted to room 211 from ER per stretcher but able to walk to bed. Is having severe lower abdominal pain and rated severity as 17/10; medicated with dilaudid. Is very tender to lower abdomen with even minimal touch. Does have BT in left abdominal quads and hypoactive in right abdominal quads. Denied nausea. Low grade temp at 100.7 and BP elevated at 146/91. Also having migraine headache with severity of 8/10. Dr. Alvarenga contacted and informed of migraine and medications reviewed with him. See new orders. Patient is alert and oriented. Breath sounds CTA with RA sat of 100%. HRR with elevated BP and was tachy at time of 0000 VS with rate of 111. Denied nausea initially but was medicated with Zofran at 2323 for complaint of nausea. At time of this charting patient has received 3 doses of dilaudid and 1 dose of morphine as well as Sumatriptan for her migraine. She reports improvement in pain with use of meds but at time of last dilaudid at 0110 her pain was back up to 9/10. She has had several loose stools since admission (has gastrograffin challenge started in ER). Is voiding and denies dysuria. Is able to turn herself and is needing SBA when out of bed. Declined use of SCD's stating it's just too much right now so reminded to ankle wave when awake. Is NPO except may has sips/chips and take po meds. Temp on recheck was 97.5. Fall risk assessment is low. Son, Luigi, rooming in.
[2023-12-28] MEDS: MORPHINE 4 MG/ML INJ IV ×2 (03:16→07:40)
[2023-12-28] MEDS: SUMAtriptan 25 MG TABLET 100 MG PO ×3 (03:43→19:27)
[2023-12-28 06:03] LABS: Add Manual Diff / Slide Review NO; Basophils Absolute Auto 0 /uL (0-100); Eosinophils Absolute Auto 0 /uL (0-450); Hematocrit 43.3 % (36-46); Hemoglobin 14.6 g/dL (12.0-16.0); Lymphocytes Absolute Auto 900 /uL (1100-4500); Lymphocytes Percent Auto 4.4 % (25-40); Mean Corpuscular HGB Conc 33.8 % (30-36); Mean Corpuscular Volume 91.7 fL (80-100); Monocytes Absolute Auto 1100 /uL (0-900); Monocytes Percent Auto 5.2 % (3-14); Neutrophils Absolute Auto 18200 /uL (1500-7000); Neutrophils Percent Auto 90.4 % (50-75); Platelet Count 182 X10^3/uL (150-400); Red Blood Cell Count 4.72 X10^6/uL (4.0-5.2); Red Cell Distribution Width 13.3 % (11.6-14.8); White Blood Cell Count 20.2 X10^3/uL (4.5-11.0)
[2023-12-28 06:12] LABS: BUN Creatinine Ratio 21.5 (6-22); Blood Urea Nitrogen 14 mg/dL (7-17); Calcium 9.1 mg/dL (8.4-10.2); Carbon Dioxide 23 mmol/L (22-32); Chloride 111 mmol/L (98-107); Estimated Glomerular Filt Rate > 60 mL/min (>60); Glucose 171 mg/dL (80-110); Sodium 142 mmol/L (137-145)
[2023-12-28 06:20] LABS: HEMOLYSIS < 15 (0-50)
[2023-12-28] MEDS: DEXTROSE 5%-0.45% NS 1,000 ML 100 ML IV ×2 (06:23→22:25)
[2023-12-28] MEDS: PEG3350/SOD SULF,BICARB,CL/KCL 4,000 ML SOLUTION 4000 ML PO (06:24)
[2023-12-28 06:25] LABS: Potassium 2.7 mmol/L (3.4-5.1)
[2023-12-28] MEDS: POTASSIUM CHLORIDE 20 MEQ TAB 40 MEQ PO ×2 (06:56→13:57)
--- NOTE | 2023-12-28 08:35 | P.CALLCOV_ITS ---
Call Coverage Note Note Date of Patient Contact: 12/28/23 Time of Patient Contact: 08:35 Narrative of Care Provided: 63-year-old woman admitted yesterday with a small-bowel obstruction and a cecal mass. Gastrografin challenge performed last night with resolution of the small- bowel obstruction. Unfortunately she has worsening abdominal pain and is now peritoneal on exam, with worsening leukocytosis. I suspect that her cecal tumor is most likely perforating. Extensive discussion with the patient and her son who is a physician in regards to her current condition. I explained that in an ideal setting we would have a chance to perform a diagnostic colonoscopy to evaluate the cecal mass as well as exclude a synchronous tumor. However I do not think that is possible at this time given her change in status. Based on the imaging and elevated CEA level this is most likely colon cancer and needs a formal right hemicolectomy. Overview of the operation was discussed. Operative risks including but not limited to infection, hemorrhage, anastomotic leak, d amage to surrounding structures, and rare but series events such as venous thromboembolism, myocardial infarction cerebrovascular accident were reviewed. Her questions have been answered she is in agreement with this plan. She provides her written and verbal consent to proceed. Open right hemicolectomy
[2023-12-28] MEDS: LACTATED RINGERS 1,000 ML 100 ML IV ×2 (08:50→10:21)
[2023-12-28] MEDS: PIPERACILLIN/TAZO 3.375 GM in SODIUM CHLORIDE 0.9% 100 ML IV ×2 (09:10→16:11)
--- NOTE | 2023-12-28 09:44 | SUR.OPER ---
Supine on padded OR bed, head on pillow, arms secured on padded arm boards at <90 degrees abduction, legs uncrossed, safety belt at thigh, tape over blanket over lower legs.
--- NOTE | 2023-12-28 11:01 | P.OP_ITS ---
Operative Date/Time/Diagnoses Date of procedure: 12/28/23 Time of procedure: 11:01 Pre-op diagnosis: Perforated colon cancer Post-op diagnosis: other (Cecal volvulus) Procedure & Clinicians Procedure: Exploratory laparotomy Ileocecectomy Same procedure as scheduled: Yes Indications: Corie is a 63-year-old woman with a history of prior abdominal surgery who presented to the emergency department at [facility] December 27 2023 with acute onset of abdominal pain. Imaging suggested a small-bowel obstruction and also noted the presence of a cecal mass. Gastrografin challenge was performed with resolution of the small-bowel obstruction however she developed worsening abdominal pain became peritoneal and was taken to the operating room for exploratory laparotomy for presumed perforated colon cancer. 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 No feculent material within the abdomen. Right colon with elongated mesentery. The right colon reaches almost to the midline without mobilization. Opening of the cecum demonstrates no tumor Specimen(s): other (Ileocecectomy) Estimated Blood Loss (mL): 50 Procedure in detail: Patient was brought to the operating room placed supine on the table. Bilateral lower extremity compression devices were applied. General anesthesia was induced and she was intubated with an endotracheal tube in RSI fashion. [place]a catheter was then sterilely placed. She was prepped and draped in sterile fashion a time-out was performed. A lower midline laparotomy was made the abdomen was entered. Upon entry to the abdomen there was purulent peritonitis no feculent material. The small bowel was eviscerated and during it a 1 mm partial thickness serosal tear was noted in the transverse colon and was oversewn with silk suture. The small bowel was run to the terminal ileum there was no evidence of a small-bowel obstruction but we found the cecum within the midline. The cecum appears to have volvulized. The mesentery to the right colon was extremely elongated and the cecum had focal ischemia, there was no large hole within it but it was leaking purulent material. No palpable mass within the cecum. There was no carcinomatosis, hepatic metastasis or mesenteric lymphadenopathy. We proceeded with a ileocecectomy. The right colon had already essentially been mobilized by the nature of the disease. A window within the terminal ileum mesentery was made and the bowel was divided using the linear bowel stapler SOPHIA 75 mm blue load. We then divided the right colon distal to the cecum in a similar fashion. The mesentery was divided using the ligature. We then fashioned a [id number] functional end and anastomosis. An enterotomy and a colotomy were made and a 3rd staple load was used to create a common channel. The anastomosis was inspected it was widely patent and hemostatic. A crotch stitch was placed with silk suture. The common opening was then closed in a running fashion using 3-0 PDS. The suture line was imbricated with interrupted silk suture. The anastomosis was tested there was no leak and it was without tension and well perfused. The abdomen was then irrigated with several liters o f saline and it returned clear. Hemostasis was checked. The fascia was then closed in a running manner using 1. PDS suture. Subcutaneous tissue was reapproximated using 3-0 Vicryl. The skin was closed with shae followed by the application of the sterile dressing. Prior to the patient's emergence a tap block was performed by the anesthesia team. The patient emerged from anesthesia and was transferred to recovery in stable condition. The sponge and instrument count was correct x2 Complications: none Post-operative Condition: stable Disposition: Acute Care
[2023-12-28] MEDS: OXYCODONE IR 5 MG TABLET PO ×3 (11:53→19:27)
[2023-12-28] MEDS: VENLAFAXINE ER 75 MG CAP 225 MG PO (12:50)
--- NOTE | 2023-12-28 15:09 | CM.DANOTE ---
Initial DCP Assessment Note Pt is a 63 yo female, resident of [place], presents from home with persistent abd pain, admitted with SBO and eventually taken to the OR for suspected perforation of cecal tumor. Patient off the floor today for ex lap Ileocecectomy. Surgery attending. PCP: Barbi Adkins Payer: UMR Reviewed chart, pt discussed in multidisciplinary rounds this morning. Unable to perform initial assessment at bedside today; will plan to follow closely. Patient reportedly indp at baseline. Discharge home w/family to assist is anticipated ; close outpatient f/u recommended. CM team will plan to follow closely in case any DC needs or concerns arise. DAVDI Davis Discharge Planning/Care Management CM Discharge Assessment Start: 12/28/23 15:06 Freq: Status: Active Protocol: Document 12/28/23 15:06 [place] (Rec: 12/28/23 15:09 [place] [id number]) Discharge Planning Assessment Assigned Public Health Registrar DAVID Barber DPOA/Assigned Designee Name Yuan Treadwell, spouse Contact Information [phone] Advance Directives? No History Provided By Medical Record Prior Living Arrangements House Household Members spouse Type of transporation used prior to Drives own vehicle admit Independent with ADL's Yes Is patient alert and oriented? Yes Comment TBD Discharge Plan Home Transportation Arrangement Family Additional Comment TBD
[2023-12-28] MEDS: ACETAMINOPHEN 325 MG TABLET 650 MG PO (16:02)
[2023-12-28] MEDS: TOPIRAMATE 25 MG TABLET 50 MG PO (16:08)
[2023-12-28 18:26] LABS: BUN Creatinine Ratio 17.8 (6-22); Blood Urea Nitrogen 13 mg/dL (7-17); Carbon Dioxide 24 mmol/L (22-32); Chloride 108 mmol/L (98-107); Estimated Glomerular Filt Rate > 60 mL/min (>60); Glucose 120 mg/dL (80-110); HEMOLYSIS < 15 (0-50); Potassium 3.4 mmol/L (3.4-5.1); Sodium 138 mmol/L (137-145)
[2023-12-28] MEDS: buPROPion SR 100 MG TAB 200 MG PO (21:11)
[2023-12-28] MEDS: CELECOXIB 200 MG CAPSULE PO (21:11)
[2023-12-29] VITALS (10 sets, daily range): BP systolic 135–151; BP diastolic 76–89; PULSE 72–87; RESP 16–18; TEMP 36.6–37.1; O2SAT 93–98
[2023-12-29] MEDS: OXYCODONE IR 5 MG TABLET PO ×2 (00:53→06:32)
[2023-12-29] MEDS: ACETAMINOPHEN 325 MG TABLET 650 MG PO ×3 (00:54→14:44)
[2023-12-29 07:11] LABS: Add Manual Diff / Slide Review NO; Basophils Absolute Auto 0 /uL (0-100); Basophils Percent Auto 0.1 % (0-2); Eosinophils Absolute Auto 0 /uL (0-450); Hematocrit 38.9 % (36-46); Hemoglobin 13.2 g/dL (12.0-16.0); Lymphocytes Absolute Auto 1200 /uL (1100-4500); Lymphocytes Percent Auto 7.4 % (25-40); Mean Corpuscular HGB Conc 33.9 % (30-36); Mean Corpuscular Hemoglobin 30.8 PG (26-34); Mean Corpuscular Volume 90.7 fL (80-100); Monocytes Absolute Auto 800 /uL (0-900); Monocytes Percent Auto 4.8 % (3-14); Neutrophils Absolute Auto 13800 /uL (1500-7000); Neutrophils Percent Auto 87.7 % (50-75); Platelet Count 188 X10^3/uL (150-400); Red Blood Cell Count 4.29 X10^6/uL (4.0-5.2); Red Cell Distribution Width 13.3 % (11.6-14.8); White Blood Cell Count 15.7 X10^3/uL (4.5-11.0)
[2023-12-29 07:23] LABS: BUN Creatinine Ratio 19.7 (6-22); Blood Urea Nitrogen 13 mg/dL (7-17); Calcium 8.4 mg/dL (8.4-10.2); Carbon Dioxide 22 mmol/L (22-32); Chloride 108 mmol/L (98-107); Estimated Glomerular Filt Rate > 60 mL/min (>60); Glucose 132 mg/dL (80-110); HEMOLYSIS < 15 (0-50); Potassium 3.5 mmol/L (3.4-5.1); Sodium 137 mmol/L (137-145)
[2023-12-29] MEDS: TRAMADOL 50 MG TABLET PO ×3 (07:36→20:02)
[2023-12-29] MEDS: DEXTROSE 5%-0.45% NS 1,000 ML 100 ML IV (08:23)
[2023-12-29] MEDS: CELECOXIB 200 MG CAPSULE PO ×2 (08:27→20:01)
[2023-12-29] MEDS: buPROPion SR 100 MG TAB 200 MG PO ×2 (08:27→20:01)
[2023-12-29] MEDS: ENOXAPARIN 40 MG/0.4 ML SYRINGE SUBCUT (08:28)
--- NOTE | 2023-12-29 08:58 | PM.PNPO.1 ---
Subjective Subjective Date Patient Seen: 12/29/23 Time Patient Seen: 12:40 Interval history: Postoperative day 1 status post ileocecectomy for cecal volvulus. No acute overnight events. Minimal appetite Ambulatory Exam Vital Signs (past 8 hours): - 12/29/23 01:00 12/29/23 05:00 12/29/23 05:36 Temperature 97.9 F Pulse Rate 86 Respiratory Rate 16 Blood Pressure 151/85 H Pulse Oximetry 93 93 94 Oxygen Delivery Method Room Air Room Air Oxygen Delivery Method Room Air Oxygen Flow Rate 0 Narrative Exam Narrative: Adult woman alert oriented no acute distress Chest nonlabored respiration Abdomen soft appropriately tender to palpation Objective Labs 12/29/23 06:30 12/29/23 06:30 Labs: Laboratory Results - last 24 hr 12/28/23 12/28/23 12/29/23 18:02 18:02 06:30 WBC 15.7 H RBC 4.29 Hgb 13.2 Hct 38.9 MCV 90.7 MCH 30.8 MCHC 33.9 RDW 13.3 Plt Count 188 Neut % (Auto) 87.7 H Lymph % (Auto) 7.4 L [place] % (Auto) 4.8 Eos % (Auto) 0.0 L Baso % (Auto) 0.1 Neut # (Auto) 77689 H Lymph # (Auto) 1200 [place] # (Auto) 800 Eos # (Auto) 0 Baso # (Auto) 0 Sodium 138 137 Potassium Cancelled 3.4 3.5 Chloride 108 H 108 H Carbon Dioxide 24 22 BUN 13 13 Creatinine 0.73 0.66 Estimated GFR > 60 > 60 BUN/Creatinine Ratio 17.8 19.7 Glucose 120 H 132 H Calcium 9.0 8.4 PFSH Medical History (Updated 12/27/23 @ 19:49 by Shawn Alvarenga MD) Factor 5 Leiden mutation, heterozygous Surgical History (Updated 12/27/23 @ 19:49 by Shawn Alvarenga MD) H/O: hysterectomy History of appendectomy Social History household members: spouse Smoking Status: Never smoker Assessment & Plan Post-op Postoperative Procedures: Procedures Operation Date: 12/28/23 08:45 Actual Procedure Side Surgeon p Exploratory Laparotomy GEN Right hemicolectomy Right Shawn Alvarenga MD Postoperative status narrative: 63-year-old woman postoperative day 1 status post ileocecectomy for cecal volvulus. Progressing appropriately after surgery. -regular diet -DC IV fluids -remove [place] catheter -levofloxacin p.o. x4 days for purulent peritonitis. WBC downtrending -SCDs and Lovenox
[2023-12-29] MEDS: VENLAFAXINE ER 75 MG CAP 225 MG PO (09:25)
[2023-12-29] MEDS: POTASSIUM CHLORIDE 20 MEQ/15 ML UDC 40 MEQ PO (09:26)
--- NOTE | 2023-12-29 12:48 | CM.DPNOTE ---
DCP Cont Reviewed chart. Patient discussed in multidisciplinary rounds. Patient is POD1 status post ileocecectomy for cecal volvulus Diet being advanced today, patient requiring SBA when out of bed. Discharge home w/family anticipated w/close outpatient follow up. CM team following closely in case any discharge needs or concerns arise. [place]
--- NOTE | 2023-12-29 13:06 | PT.IIE ---
Current Diagnoses Partial intestinal obstruction, unspecified as to cause (12/27/23) Surgery Performed Operation Date: 12/28/23 08:45 Actual Procedures p Exploratory Laparotomy GEN Right hemicolectomy(Right) - Shawn Alvarenga MD Surgical History (Last Updated 12/27/23 @ 19:49 by Shawn Alvarenga MD) H/O: hysterectomy History of appendectomy Medical History (Last Updated 12/27/23 @ 19:49 by Shawn Alvarenga MD) Factor 5 Leiden mutation, heterozygous Physical Therapy Inpatient Evaluation/Re-Eval M1 PT/OT-IP Prior Functional Status Start: 12/29/23 11:43 Freq: NEEDED Status: Active Protocol: Document 12/29/23 12:58 MB (Rec: 12/29/23 13:06 MB [id number]) Medical Review Prior Functional Status Medical History Reviewed Yes Diet/Fluid Consistency Regular Communication WNLs Mobility and Gait I, walks 5 miles a day with her dog, 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 M2 PT-IP Current Condition Start: 12/29/23 11:43 Freq: NEEDED Status: Active Protocol: Document 12/29/23 12:58 MB (Rec: 12/29/23 13:06 MB [id number]) Physical Therapy Current Condition Current Condition Evaluation Date 12/29/23 Treatment Diagnosis Cecal mass s/p iliocecectomy M3 PT-IP Subjective Start: 12/29/23 11:43 Freq: NEEDED Status: Active Protocol: Document 12/29/23 12:58 MB (Rec: 12/29/23 13:06 MB [id number]) Subjective Physical Therapy Visit Type Type Initial Evaluation Visit Start Time 12:46 Visit Stop Time 12:58 Number of HOLL[employer]ER Visits 0 Physical Therapy Visit Comments Patient Comments Pt states she is getting up to take a shower and daughter nearby. Pt states she has flight of steps at home and so surgeon is waiting for d/c tomorrow. Therapy Pain Assessment Pain When Pain Assessed At Rest Pain Present Pain Present Pain Reported Location Abdomen Intensity 1 Scale Used [place] (Faces) M4 PT-IP Mobility and Gait Start: 12/29/23 11:43 Freq: NEEDED Status: Active Protocol: Document 12/29/23 12:58 MB (Rec: 12/29/23 13:06 MB [id number]) PT-Bed Mobility Assessment Rolling Type of Rolling Roll to Right Level of Assist Independent Supine to Sit Supine to Sit Independent,Bedrails Sit to Supine Sit to Supine Independent PT-Transfer Assessment Sit to and From Stand Sit to and from Stand Independent Equipment Transfer Assistive Device Gait Belt Orthotic/Prosthetic Devices or Brace: No Comments Mobility Comments I transfers Gait Assessment Gait Gait Assistance Required: Independent Distance (Feet) 100 Able to Maintain Weight Bearing Status Yes During Gait Assistive Devices Assistive Device Gait Belt Orthotic/Prosthetic Devices or Brace: No Gait Deviations General Gait Pattern Antalgic Factors Limiting Gait Function Factors Limiting Gait Function Decreased Activity Tolerance Comments Gait Comments I gait, moves slowly d/t abdominal changes Stair Climbing Assessment Evaluation Level of Assist On Stairs Independent Devices Stair Climbing Assistive Devices Left Railing Technique/Endurance Stair Climbing Direction Ascend and Descend Stair Climbing Technique Step Over Step Number of Steps Climbed 3 Query Text: Stair Climbing Set # Repetitions (reps) 2 Comments Stair Climbing Comments Mod I with rail for step mobility PT-Balance Assessment Sitting Balance and Reactions Static Sitting Balance Ability Normal Dynamic Sitting Balance Ability Normal Standing Balance and Reactions Static Standing Balance Ability Normal Dynamic Standing Balance Ability Normal Device Used None M5 PT-IP Objective Assessments Start: 12/29/23 11:43 Freq: NEEDED Status: Active Protocol: Document 12/29/23 12:58 MB (Rec: 12/29/23 13:06 MB [id number]) Orientation Orientation/Cognition Level of Alertness Alert Orientation Name,Age,Birthday,Month,Date, Year,Day of Week,Place, Situation Language Function Ability No Deficits Noted Safety Awareness Understands Safety Issues Memory Description No Deficits Noted Gross Range of Motion Upper Extremity ROM Assessment Within Functional Limits Lower Extremity ROM Assessment Within Functional Limits Strength Upper Extremity Strength Assessment Within Functional Limits Lower Extremity Strength Assessment Within Functional Limits M6 PT-IP Treatment Start: 12/29/23 11:43 Freq: NEEDED Status: Active Protocol: Document 12/29/23 12:58 MB (Rec: 12/29/23 13:06 MB [id number]) Physical Therapy Treatment Education Education Provided Precautions,Safety M7 PT-IP Assessment and Plan Start: 12/29/23 11:43 Freq: NEEDED Status: Active Protocol: Document 12/29/23 12:58 MB (Rec: 12/29/23 13:06 MB [id number]) PT Summary Assessment and Plan Potential Rehabilitation Potential Excellent Status of Condition at Evaluation Stable Summary Impairments Pain Progress Towards Goals Safe For Discharge Assessment Summary Pt is a lady who is moving well post-op. 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 Supportive daughter is nearby and pt will have assistance at home. 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 She is I with gait and steps x6 with rail. She has no acute PT needs. Will d/c PT and recommend up with nsg clearance/superv. Frequency of Treatment Frequency Of Treatment Discharge Precautions Abdominal Surgery Precautions Log Roll,Lifting Restrictions, Gait Belt above Incisional Area Weight Bearing Status Weight Bearing Status Weight Bear as Tolerated Recommendations To Nursing Amount of Assist Needed Standby Assistance Discharge Recommendations PT Discharge Recommendations Home with Assistance Transportation Needs at Discharge Private Vehicle
[2023-12-29] MEDS: OXYCODONE IR 10 MG TABLET PO (17:02)
[2023-12-29] MEDS: TOPIRAMATE 25 MG TABLET 50 MG PO (17:05)
[2023-12-30] VITALS: O2SAT 98
[2023-12-30] MEDS: OXYCODONE IR 5 MG TABLET PO (00:21)
[2023-12-30] MEDS: ACETAMINOPHEN 325 MG TABLET 650 MG PO ×2 (00:21→09:01)
[2023-12-30 00:34] VITALS: BP 132/84; PULSE 74; RESP 18; TEMP 35.9; O2SAT 98
[2023-12-30 05:00] VITALS: BP 149/91; PULSE 90; RESP 18; TEMP 35.9; O2SAT 98
[2023-12-30] MEDS: TRAMADOL 50 MG TABLET PO (05:01)
[2023-12-30 05:15] LABS: Add Manual Diff / Slide Review NO; Basophils Absolute Auto 0 /uL (0-100); Basophils Percent Auto 0.1 % (0-2); Eosinophils Absolute Auto 0 /uL (0-450); Eosinophils Percent Auto 0.1 % (2-4); Hematocrit 37.1 % (36-46); Lymphocytes Absolute Auto 1500 /uL (1100-4500); Lymphocytes Percent Auto 13.8 % (25-40); Mean Corpuscular Hemoglobin 31.7 PG (26-34); Mean Corpuscular Volume 90.7 fL (80-100); Monocytes Absolute Auto 700 /uL (0-900); Monocytes Percent Auto 6.6 % (3-14); Neutrophils Absolute Auto 8300 /uL (1500-7000); Neutrophils Percent Auto 79.4 % (50-75); Platelet Count 188 X10^3/uL (150-400); Red Blood Cell Count 4.09 X10^6/uL (4.0-5.2); White Blood Cell Count 10.5 X10^3/uL (4.5-11.0)
[2023-12-30 05:35] LABS: HEMOLYSIS < 15 (0-50)
[2023-12-30 05:36] LABS: BUN Creatinine Ratio 16.9 (6-22); Blood Urea Nitrogen 11 mg/dL (7-17); Calcium 8.8 mg/dL (8.4-10.2); Carbon Dioxide 23 mmol/L (22-32); Chloride 109 mmol/L (98-107); Estimated Glomerular Filt Rate > 60 mL/min (>60); Glucose 98 mg/dL (80-110); Sodium 137 mmol/L (137-145)
[2023-12-30] MEDS: levoFLOXacin 250 MG TABLET 750 MG PO (06:14)
[2023-12-30 06:16] LABS: Potassium 3.8 mmol/L (3.4-5.1)
[2023-12-30] MEDS: ONDANSETRON 4 MG/2 ML INJ IV (06:52)
--- NOTE | 2023-12-30 07:03 | PC.NURSE ---
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 Abdominal drsg is CDI. Complaints of moderate pain relieved by ordered PO pain medication. Ambulated frequently in hallway. Had x1 small, loose bowel movement this morning. Had nausea after PO Levofloxacin this morning, IV Zofran given with stated relief. Plan of care ongoing.
[2023-12-30 07:56] VITALS: BP 125/81; PULSE 75; TEMP 36.7; O2SAT 98
[2023-12-30 09:00] VITALS: O2SAT 97
[2023-12-30] MEDS: VENLAFAXINE ER 75 MG CAP 225 MG PO (09:00)
[2023-12-30] MEDS: buPROPion SR 100 MG TAB 200 MG PO (09:00)
[2023-12-30] MEDS: CELECOXIB 200 MG CAPSULE PO (09:01)
--- NOTE | 2023-12-30 10:08 | CM.DPNOTE ---
DC Note Discharge home today with family to assist throughout recovery, close outpatient follow up recommended. No needs identified from this CM team. [place]
--- NOTE | 2023-12-30 13:18 | P.DS_ITS ---
History of Present Illness History of Present Illness Chief complaint: GI Sick Narrative: Corie is a 63-year-old woman PMH factor 5 Leiden deficiency not on anticoagulation, who presents to [facility] Emergency Department with acute onset of abdominal pain. She developed sharp bandlike pain of her lower abdomen over the past 24 hours with associated bloating. No nausea or emesis. Last bowel movement was several hours ago. For the past 6 months she has had altered bowel function. She reports a previously normal colonoscopy 2 years ago at [facility]. At admission CT abdomen pelvis demonstrates a partial small bowel obstruction and cecal mass however it does not appear that the small-bowel obstruction is secondary to the cecal mass. Previous abdominal surgery includes hysterectomy and appendectomy. At admission afebrile, vital signs within normal limits, WBC 14, with left shift. Discharge Providers Provider Date of admission: 12/27/23 19:04 Discharge Date: 12/30/23 Primary care physician: Barbi Adkins PA-C Consults: 12/29/23 08:57 Consult to Physical Therapy Evaluate & Treat Comment: Physician Instructions: Evaluate and Treat Discharge provider: Shawn Alvarenga MD Summary Hospital Course Discharge Diagnosis: Cecal volvulus Purulent peritonitis Hospital Course: She had a acute change in status over the 1st 12 hours of admission. She developed peritonitis and was taken to the operating room for an exploratory laparotomy. Surgical findings were significant for a cecal volvulus a ileo cecectomy was performed. There was no evidence of mass within the cecum. Postoperatively she progressed well without issue. At discharge she is tolerant of regular diet leukocytosis has resolved she is ambulatory and her pain is well controlled with oral medication. She is discharged home on a short course of levofloxacin she will have received a total of 5 days of antibiotics for intra- abdominal infection/purulent peritonitis. Exam Vital Signs (past 8 hours): - 12/30/23 07:56 12/30/23 09:00 Temperature 98.1 F Pulse Rate 75 Blood Pressure 125/81 Pulse Oximetry 98 97 Oxygen Delivery Method Room Air Oxygen Flow Rate 0 0 Oxygen Delivery Method Room Air Oxygen Flow Rate 0 Narrative Exam Narrative: General adult woman alert oriented no acute distress Chest nonlabored respiration Abdomen soft appropriately tender to palpation. Midline dressing is clean dry intact. Objective Labs 12/30/23 04:45 12/30/23 04:45 Labs: Laboratory Results - last 24 hr 12/30/23 04:45 WBC 10.5 RBC 4.09 Hgb 13.0 Hct 37.1 MCV 90.7 MCH 31.7 MCHC 35.0 RDW 13.0 Plt Count 188 Neut % (Auto) 79.4 H Lymph % (Auto) 13.8 L Sharp % (Auto) 6.6 Eos % (Auto) 0.1 L Baso % (Auto) 0.1 Neut # (Auto) 8300 H Lymph # (Auto) 1500 Sharp # (Auto) 700 Eos # (Auto) 0 Baso # (Auto) 0 Sodium 137 Potassium 3.8 Chloride 109 H Carbon Dioxide 23 BUN 11 Creatinine 0.65 Estimated GFR > 60 BUN/Creatinine Ratio 16.9 Glucose 98 Calcium 8.8 PFSH Medical History (Updated 12/27/23 @ 19:49 by Shawn Alvarenga MD) Factor 5 Leiden mutation, heterozygous Surgical History (Updated 12/27/23 @ 19:49 by Shawn Alvarenga MD) H/O: hysterectomy History of appendectomy Social History household members: spouse Smoking Status: Never smoker Discharge Plan Discharge Plan Patient Disposition: Home Provider Discharge Comment: No lifting >10 lbs x 4 weeks OK to shower but leave dressing in place until follow up Diet as tolerated Discharge orders & Medications Prescriptions: New tramadol 50 mg tablet 50 mg PO Q6H PRN (Reason: pain) Qty: 15 0RF levofloxacin 750 mg tablet 750 mg PO DAILY Qty: 2 0RF Continued trazodone 50 mg tablet 50 mg PO ONCE PM PRN (Reason: Insomnia) sumatriptan succinate 100 mg tablet 100 mg PO Q2H PRN (Reason: Migraine Headache) Rx Instructions: up to QID/day methylphenidate HCl 20 mg tablet 20 mg PO BID PRN (Reason: attention deficit hyperactivity disorder) topiramate 25 mg tablet 50 mg PO ONCE PM buspirone 15 mg tablet 15 mg PO DAILY PRN (Reason: Anxiety) venlafaxine 225 mg tablet extended release 24hr 225 mg PO DAILY bupropion HCl 200 mg tablet sustained-release 12 hr 200 mg PO BID fluticasone propionate 50 mcg/actuation spray,suspension 2 spray intranasal DAILY Follow up/Referrals: Shawn Alvarenga MD [Physician] - 1 Week Diet/Activity/Treatments Diet: Diet as Tolerated Skin/Wound/Dressing Care Report to your healthcare provider any signs of infection, such as:: chills, fever, increased pain, unusual drainage and unusual redness Visit Report/Discharge Packet Instructions: DI for Colectomy, [facility]: Wound Care Stand Alone Forms: Patient Portal/API, Stroke Signs & Symptoms Discharge Data Primary Care Provider: Barbi Adkins
== END 2023-12-30 09:58 | disposition home or self-care (01) | DRG 329 ==
LOC: ED 17:18 → AC 12-28 07:43
PROVIDERS: Admitting Provider Surgery; Emergency Provider Emergency Medicine; PCP Student in an Organized Health Care Education/Training Program; Referring Provider Emergency Medicine; Visit Provider Surgery
PROC: 0DTH0ZZ Resection of Cecum, Open Approach (ICD-10-PCS; CPT 49000; principal; 2023-12-28 08:45)
DX: K56.600 Partial intestinal obstruction, unspecified as to cause (principal); K65.0 Generalized (acute) peritonitis; D68.51 Activated protein C resistance; K55.9 Vascular disorder of intestine, unspecified; K56.2 Volvulus; F41.9 Anxiety disorder, unspecified; F98.8 Other specified behavioral and emotional disorders with onset usually occurring in childhood and adolescence
CPT/HCPCS: 36415; 44160; 71275; 74018; 74174; 74177; 80048; 80053; 81003; 82272; 82378; 83605; 85025; 85610; 85730; 86850; 86900; 86901; 96374; 96375; 96376; 97161; 99222; 99284; 99285; C9113; J1100; J1170; J1650; J2250; J2270; J2405; J2543; J2704; J3010; Q9967

== ENCOUNTER → 2024-05-16 16:45 | Outpatient (CLI) | payer OTHER, SELFPAY ==
[2023-12-27 21:24] VITALS: BMI 30.5
--- NOTE | 2024-05-16 16:48 | DI.RAD.S_ITS ---
PROCEDURE: XR FOOT RT MIN 3V INDICATIONS: Localized swelling, mass and lump, right lower limb TECHNIQUE: 3 views of the foot were acquired. COMPARISON: None. FINDINGS: Bones: Mild subchondral lucency at the 2nd middle phalangeal head, favoring degenerative. Mild degenerative changes 2nd distal interphalangeal joint. Plantar calcaneal enthesophyte. No acute fracture or dislocation. Soft tissues: No tibiotalar joint effusion. Achilles tendon appears normal. IMPRESSION: No acute bony abnormality. Dictated by: Silvana Hughes M.D. on 05/17/2024 at 11:28 Approved by: Silvana Hughes M.D. on 05/17/2024 at 11:30
== END ==
LOC: RAD 16:47
PROVIDERS: PCP Family Medicine; Referring Provider Family Medicine; Visit Provider Family Medicine
DX: R22.41 Localized swelling, mass and lump, right lower limb (principal)
CPT/HCPCS: 73630